=== PATIENT | male | born 1960 | race Two or more races ===

== ENCOUNTER 2018-04-11 12:18 | Day surgery (SDC) | payer OTHER ==
[2018-04-11] MEDS ORDERED: DIAZEPAM 5 MG TAB ONE (12:45)
[2018-04-11] MEDS ORDERED: BUPIVACAINE HCL 0.25% MPF 30 ML SOL INFIL ONE (13:08)
[2018-04-11] MEDS ORDERED: LIDOCAINE HCL 1% MPF 30 SOL ONE (13:12)
[2018-04-11 13:21] VITALS: RESP 16; O2SAT 99
[2018-04-11] MEDS: FENTANYL 100MCG/2ML SOL ONE ×2 (13:38→13:54)
[2018-04-11] MEDS: MIDAZOLAM 2 MG/2 ML SOL ONE ×2 (13:38→13:50)
[2018-04-11 14:16] VITALS: BP 132/93; PULSE 67; TEMP 97.7
== END 2018-04-11 14:33 | disposition home or self-care (01) ==
LOC: SURG 12:18
PROVIDERS: ATTEND Nurse Anesthetist, Certified Registered
DX: M17.0 Bilateral primary osteoarthritis of knee (principal); E11.9 Type 2 diabetes mellitus without complications
CPT/HCPCS: 82962; J2250; J3010; A9270-GY; J2001

== ENCOUNTER 2019-02-28 11:29 | Outpatient (CLI) | payer OTHER ==
[2018-04-11 13:21] VITALS: O2SAT 99
== END 2019-02-28 11:30 | disposition home or self-care (01) ==
LOC: CONVCARE 11:29
PROVIDERS: ATTEND Orthopaedic Surgery
DX: M25.562 Pain in left knee (principal); M25.561 Pain in right knee
CPT/HCPCS: 73560; 73565